=== PATIENT | male | born 1995 | race Two or more races ===

== ENCOUNTER 2018-05-23 17:29 | Observation (INO) | payer MEDICAID, OTHER ==
[~2018-05-23] VITALS: Ht 172.7 cm; Wt 81.6 kg
[~2018-05-23 17:29] MED LIST: TRAZADONE; WELLBUTRIN
[2018-05-23] MEDS ORDERED: IOHEXOL 300 MG/ML 100ML BOTTLE IJ ONE (18:30)
[2018-05-23 22:17] VITALS: BP 122/69
== END 2018-05-23 22:50 | disposition home or self-care (01) | DRG 82 ==
LOC: ER 17:31 → OVERFLOW 17:32 → ER 22:50
PROVIDERS: ADMIT Anesthesiology; ATTEND Anesthesiology
DX: H54.61 Unqualified visual loss, right eye, normal vision left eye (principal); H53.2 Diplopia
CPT/HCPCS: 70481; 99285; G0378; Q9967

== ENCOUNTER 2020-07-18 17:07 | Emergency (ER) | payer MEDICAID ==
[~2020-07-18] VITALS: Ht 172.7 cm; Wt 77.1 kg
[2020-07-18 18:28] LABS: Basophils # (auto) 0.1 10 ^3/uL (0-0.2); Basophils % (auto) 0.6 % (0.0-2.0); Eosinophils # (auto) 0 10 ^3/uL (0-0.8); Eosinophils % (auto) 0.2 % (0.0-7.0); Hematocrit 44.3 % (41.0-53.0); Hemoglobin 14.9 g/dL (13.5-17.5); Lymphocytes # (auto) 1.2 10 ^3/uL (0.4-5.4); Lymphocytes % (auto) 13.3 % (10.0-50.0); Mean Corpuscular Hgb Conc. 33.6 g/dL (32.0-36.0); Mean Corpuscular Volume 86.2 fL (80.0-100.0); Monocytes # (auto) 0.7 10 ^3/uL (0-1.3); Monocytes % (auto) 7.5 % (0.0-12.0); Neutrophils # (auto) 6.9 10 ^3/uL (1.6-8.6); Neutrophils % (auto) 78.4 % (37.0-80.0); Platelet Count (auto) 293 10^3/uL (140-450); Red Blood Cells 5.14 10^6/uL (4.5-5.90); Red Cell Distribution Width 13.6 % (11.8-14.3); White Blood Cell 8.8 10^3/uL (4.4-10.8)
[2020-07-18 18:41] LABS: Albumin 4.3 g/dL (3.4-5.0); Calcium 8.8 mg/dL (8.5-10.1); Potassium 3.8 mmol/L (3.5-5.1)
[2020-07-18 18:43] LABS: Salicylate < 1.7 mg/dL (2.8-20.0)
[2020-07-18 18:45] LABS: Acetaminophen < 2.0 ug/mL (10-30); BUN/Creatinine Ratio 10.9; Bilirubin, Total 0.2 mg/dL (0.2-1.0); Total Protein 7.8 g/dL (6.4-8.2)
[2020-07-18 20:00] VITALS: BP 110/68
== END 2020-07-18 19:48 | disposition home or self-care (01) ==
LOC: ER 17:07 → EDBD 17:07 → ER 19:48
DX: T50.901A Poisoning by unspecified drugs, medicaments and biological substances, accidental (unintentional), initial encounter (principal); X58.XXXA Exposure to other specified factors, initial encounter
CPT/HCPCS: 36415; 80053; 80320; 80329; 85025; 93005

== ENCOUNTER 2023-10-15 15:11 | Emergency (ER) | payer MEDICAID ==
[~2023-10-15] VITALS: Ht 172.7 cm; Wt 86.2 kg
[2023-10-15 15:20] VITALS: BP 127/80; PULSE 81; RESP 20; O2SAT 100
[2023-10-15] MEDS ORDERED: LORazepam 0.5 MG TAB PO ONE (16:30)
[2023-10-15 18:48] LABS: Amphetamine Screen, Urine Pos (NEGATIVE); Barbiturate Scree,Urine Neg (NEGATIVE); Benzodiazephine Screen, Urine Neg (NEGATIVE); Cannabinoid Screen, Urine Neg (NEGATIVE); Cocaine Screen, Urine Neg (NEGATIVE); Opiate Scree,Urine Neg (NEGATIVE); Phencyclidine Screen, Urine Neg (NEGATIVE)
== END 2023-10-15 17:40 | disposition home or self-care (01) ==
LOC: ER 15:11
DX: F41.9 Anxiety disorder, unspecified (principal); R20.0 Anesthesia of skin; Z79.899 Other long term (current) drug therapy
CPT/HCPCS: 80307